=== PATIENT | male | born 1950 | race Two or more races ===

== ENCOUNTER 2019-06-10 11:18 | Inpatient (IN) | payer MEDICAID, OTHER ==
[~2019-06-10] VITALS: Ht 170.2 cm; Wt 90.7 kg
[2019-06-10] MEDS ORDERED: ALBUTEROL (0.083%) 2.5MG/3ML NEB HHN STA (11:59)
[2019-06-10] MEDS ORDERED: IPRATROPIUM BROMIDE (0.02%) 0.5MG/2.5ML NEB HHN STA (11:59)
[2019-06-10] MEDS ORDERED: METHYLPREDNISOLONE SOD SUCC 125 MG/2 ML VIAL IV STA (11:59)
[2019-06-10] MEDS ORDERED: ASPIRIN 81MG TABLET PO ONE (12:00)
[2019-06-10] MEDS ORDERED: NITROGLYCERIN OINT 1GM/INCH UDPKT TD ONE (12:00)
[2019-06-10] MEDS ORDERED: FUROSEMIDE 40MG/4ML VIAL IV ONE (12:00)
[2019-06-10 13:06] LABS: BASOPHILS % 0.5 % (0.0-2.0); EOSINOPHILS % 0.8 % (0.0-5.0); HEMOGLOBIN. 11.9 g/dL (14.0-18.0); LYMPHOCYTES % 14.3 % (20.0-50.0); MEAN CORPUSCULAR HEMOGLOBIN 31.5 pg (28.0-32.0); MEAN CORPUSCULAR VOLUME 95.4 fL (80.0-94.0); MONOCYTES % 11.8 % (2.0-8.0); NEUTROPHILS % 72.6 % (40.0-76.0); PLATELET 186 x1000/uL (130-400); RED BLOOD CELL COUNT 3.77 mill/uL (4.7-6.1); RED CELL DISTRIBUTION WIDTH 16.7 % (11.6-14.6)
[2019-06-10 13:09] LABS: CHLORIDE 104 mEq/L (98-107)
[2019-06-10 13:19] LABS: INR 2.7; PARTIAL THROMBOPLASTIN TIME 37.8 sec (23.4-31.0); PROTHROMBIN TIME 26.8 sec (9.6-11.0)
[2019-06-10] MEDS ORDERED: MAGNESIUM/ALUMINUM HYDROXIDE/SIMETHICONE 30ML UDC PO PRN (19:00)
[2019-06-10] MEDS ORDERED: ONDANSETRON HCL 4MG/2ML INJ IV PRN (19:00)
[2019-06-10] MEDS ORDERED: ACETAMINOPHEN 325MG TABLET PO PRN (19:00)
[2019-06-10] MEDS ORDERED: HYDROCODONE/ACETAMINOPHEN 5/325MG TABLET PO PRN (19:00)
[2019-06-10] MEDS ORDERED: GUAIFENESIN 200MG/10ML SUGAR FREE UDC PO PRN (19:00)
[2019-06-10] MEDS ORDERED: DOCUSATE SODIUM 100MG CAPSULE PO PRN (19:00)
[2019-06-10] MEDS ORDERED: MORPHINE SULFATE 2 MG/ML CPJ (NOT FOR IM USE) IV PRN (19:18)
[2019-06-10 22:10] VITALS: BP 159/97
[2019-06-11] MEDS ORDERED: METO25TA6 PO (02:02)
[2019-06-11] MEDS ORDERED: TIOT4MIS3 IH (02:02)
[2019-06-11] MEDS ORDERED: LEVO25TA7 PO (02:02)
[2019-06-11] MEDS ORDERED: CARB-32 PO (02:02)
[2019-06-11] MEDS ORDERED: BENA10TA74 PO (02:02)
[2019-06-11] MEDS ORDERED: CLON0.1T PO (02:02)
[2019-06-11] MEDS ORDERED: FURO20TA4 PO (02:02)
[2019-06-11] MEDS ORDERED: POTA20TA82 PO (02:02)
[2019-06-11] MEDS ORDERED: COLC0.6C3 PO (02:02)
[2019-06-11] MEDS ORDERED: FLUT100B IH (02:02)
[2019-06-11] MEDS ORDERED: XAR15 PO (02:02)
[2019-06-11 04:00] VITALS: BP 153/108
[2019-06-11] MEDS: CLONIDINE 0.1MG TABLET PO PRN ×2 (06:28→08:28)
[2019-06-11 06:39] LABS: BASOPHILS % 0.1 % (0.0-2.0); HEMATOCRIT. 34.1 % (42.0-52.0); HEMOGLOBIN. 11.2 g/dL (14.0-18.0); LYMPHOCYTES % 8.8 % (20.0-50.0); MEAN CORPUSCULAR HEMOGLOBIN 31.4 pg (28.0-32.0); MEAN PLATELET VOLUME 9.4 fl (7.4-10.4); MONOCYTES % 3.1 % (2.0-8.0); PLATELET 165 x1000/uL (130-400); RED BLOOD CELL COUNT 3.56 mill/uL (4.7-6.1); RED CELL DISTRIBUTION WIDTH 16.7 % (11.6-14.6)
[2019-06-11 08:00] VITALS: BP 176/113
[2019-06-11] MEDS ORDERED: PNEUMOCOCCAL 23-VAL P-SAC VAC 0.5 ML IM ONE (08:00)
[2019-06-11] MEDS: LISINOPRIL 10MG TABLET PO SCH (08:28)
[2019-06-11] MEDS: FUROSEMIDE 40MG/4ML VIAL IV SCH (08:29)
[2019-06-11 08:36] LABS: CHLORIDE 104 mEq/L (98-107)
[2019-06-11 08:46] LABS: LDL CHOLESTEROL 74 mg/dL (5-100)
[2019-06-11 08:48] LABS: HDL CHOLESTEROL 39 mg/dL (40-59)
[2019-06-11] MEDS ORDERED: INFLUENZA VIRUS VACCINE(AFLURIA) 0.5ML SYR IM ONE (10:00)
[2019-06-11] MEDS ORDERED: FLUTICASONE FUROATE 100 1 INH/CAP ORI SCH (10:00)
[2019-06-11] MEDS: LEVOTHYROXINE SODIUM 25MCG TABLET PO SCH (10:38)
[2019-06-11] MEDS: POTASSIUM CHLORIDE 20MEQ TABLET SR PO SCH (10:38)
[2019-06-11 12:18] VITALS: BP 152/102
[2019-06-11] MEDS: CARBIDOPA/LEVODOPA 25/100MG TABLET PO SCH ×2 (13:42→22:08)
[2019-06-11 16:00] VITALS: BP 153/103
[2019-06-11 16:36] LABS: T4 FREE 1.55 ng/dL (0.76-1.46)
[2019-06-11 20:10] VITALS: BP 148/112
[2019-06-11] MEDS: BUDESONIDE 0.5MG/2ML NEB HHN SCH (20:35)
[2019-06-11] MEDS: METOPROLOL TARTRATE 25MG TABLET PO SCH (22:07)
[2019-06-11] MEDS: CLONIDINE 0.1MG TABLET PO SCH (22:08)
[2019-06-12] VITALS (7 sets, daily range): BP systolic 110–175; BP diastolic 74–118
[2019-06-12 00:31] LABS: CREATINE KINASE MB FRACTION 1.9 ng/mL (0.5-3.6)
[2019-06-12] MEDS: IPRATROPIUM/ALBUTEROL 0.5-3(2.5)MG/3ML NEB NEB PRN ×2 (02:30→18:09)
[2019-06-12] MEDS: CLONIDINE 0.1MG TABLET PO PRN (04:01)
[2019-06-12] MEDS: CARBIDOPA/LEVODOPA 25/100MG TABLET PO SCH ×3 (05:50→21:10)
[2019-06-12] MEDS: LEVOTHYROXINE SODIUM 25MCG TABLET PO SCH (05:50)
[2019-06-12 07:43] LABS: INR 1.5; PROTHROMBIN TIME 14.8 sec (9.6-11.0)
[2019-06-12 08:16] LABS: CREATINE KINASE MB FRACTION 1.8 ng/mL (0.5-3.6)
[2019-06-12] MEDS: POTASSIUM CHLORIDE 20MEQ TABLET SR PO SCH (09:02)
[2019-06-12] MEDS: METOPROLOL TARTRATE 25MG TABLET PO SCH ×2 (09:03→21:10)
[2019-06-12] MEDS: LISINOPRIL 10MG TABLET PO SCH (09:07)
[2019-06-12] MEDS: FUROSEMIDE 40MG/4ML VIAL IV SCH (09:07)
[2019-06-12] MEDS: CLONIDINE 0.1MG TABLET PO SCH ×2 (09:07→21:11)
[2019-06-12] MEDS: BUDESONIDE 0.5MG/2ML NEB HHN SCH (10:25)
[2019-06-12] MEDS: METHYLPREDNISOLONE SOD SUCC 40 MG/ML VIAL IV SCH (12:43)
[2019-06-12] MEDS: RIVAROXABAN 15 MG TABLET PO SCH (18:28)
[2019-06-13] VITALS (7 sets, daily range): BP systolic 116–169; BP diastolic 87–119
[2019-06-13] MEDS: IPRATROPIUM/ALBUTEROL 0.5-3(2.5)MG/3ML NEB HHN SCH ×5 (00:26→20:33)
[2019-06-13] MEDS: CLONIDINE 0.1MG TABLET PO PRN (00:49)
[2019-06-13] MEDS: CARBIDOPA/LEVODOPA 25/100MG TABLET PO SCH ×3 (05:09→21:12)
[2019-06-13 06:53] LABS: BASOPHILS % 0.1 % (0.0-2.0); HEMATOCRIT. 36.8 % (42.0-52.0); HEMOGLOBIN. 12.1 g/dL (14.0-18.0); LYMPHOCYTES % 7.9 % (20.0-50.0); MEAN CORPUSCULAR HEMOGLOBIN 31.5 pg (28.0-32.0); MEAN CORPUSCULAR VOLUME 95.8 fL (80.0-94.0); MEAN PLATELET VOLUME 9.2 fl (7.4-10.4); MONOCYTES % 2.7 % (2.0-8.0); NEUTROPHILS % 89.3 % (40.0-76.0); PLATELET 178 x1000/uL (130-400); RED BLOOD CELL COUNT 3.84 mill/uL (4.7-6.1); RED CELL DISTRIBUTION WIDTH 17.1 % (11.6-14.6)
[2019-06-13 06:57] LABS: CHLORIDE 102 mEq/L (98-107)
[2019-06-13] MEDS: METHYLPREDNISOLONE SOD SUCC 40 MG/ML VIAL IV SCH (08:44)
[2019-06-13] MEDS: FUROSEMIDE 40MG/4ML VIAL IV SCH (08:44)
[2019-06-13] MEDS: METOPROLOL TARTRATE 25MG TABLET PO SCH ×2 (08:45→21:12)
[2019-06-13] MEDS: LEVOTHYROXINE SODIUM 25MCG TABLET PO SCH (08:45)
[2019-06-13] MEDS: LISINOPRIL 10MG TABLET PO SCH (08:45)
[2019-06-13] MEDS: POTASSIUM CHLORIDE 20MEQ TABLET SR PO SCH (08:45)
[2019-06-13] MEDS: CLONIDINE 0.1MG TABLET PO SCH ×2 (08:46→21:12)
[2019-06-13] MEDS: BUDESONIDE 0.5MG/2ML NEB HHN SCH ×3 (08:52→20:33)
[2019-06-13] MEDS: RIVAROXABAN 15 MG TABLET PO SCH (18:10)
[2019-06-13 18:11] LABS: BG BASE EXCESS -1.3 mmol/L (-2.0-2.0); BG CARBOXYHEMOGLOBIN 0.8 % (0.5-1.5); BG DEOXYHEMOGLOBIN 5.8 % (0.0-5.0); BG HCO3 ACT 22.4 mmol/L (22.0-26.0); BG METHEMOGLOBIN 0.1 % (0.0-1.5); BG OXYGEN SATURATION 94.1 % (92.0-98.5); BG OXYHEMOGLOBIN 93.3 % (94.0-97.0); BG PCO2 34.9 mmHg (35.0-45.0); BG PH 7.426 (7.350-7.450); BG PO2 72.6 mmHg (75.0-100.0); BG SAMPLE SITE RIGHT RADIAL; BG VENT MODE ROOM AIR
[2019-06-14] VITALS: BP 152/99
[2019-06-14] MEDS: CLONIDINE 0.1MG TABLET PO PRN (03:23)
[2019-06-14 03:30] VITALS: BP 164/101
[2019-06-14] MEDS: CARBIDOPA/LEVODOPA 25/100MG TABLET PO SCH ×3 (05:13→21:21)
[2019-06-14 08:00] VITALS: BP 166/115
[2019-06-14] MEDS: POTASSIUM CHLORIDE 20MEQ TABLET SR PO SCH (08:23)
[2019-06-14] MEDS: LEVOTHYROXINE SODIUM 25MCG TABLET PO SCH (08:23)
[2019-06-14] MEDS: LISINOPRIL 10MG TABLET PO SCH (08:24)
[2019-06-14] MEDS: CLONIDINE 0.1MG TABLET PO SCH ×2 (08:24→21:22)
[2019-06-14] MEDS: METOPROLOL TARTRATE 25MG TABLET PO SCH ×2 (08:24→21:22)
[2019-06-14] MEDS: BUDESONIDE 0.5MG/2ML NEB HHN SCH ×2 (08:37→21:57)
[2019-06-14] MEDS: IPRATROPIUM/ALBUTEROL 0.5-3(2.5)MG/3ML NEB HHN SCH ×3 (08:37→22:08)
[2019-06-14] MEDS: FUROSEMIDE 40MG/4ML VIAL IV SCH (09:48)
[2019-06-14] MEDS: METHYLPREDNISOLONE SOD SUCC 40 MG/ML VIAL IV SCH (09:48)
[2019-06-14 12:00] VITALS: BP 162/117
[2019-06-14 16:00] VITALS: BP 149/99
[2019-06-14] MEDS: RIVAROXABAN 15 MG TABLET PO SCH (16:33)
[2019-06-14] MEDS ORDERED: MEDICATION NOT ON FORMULARY EA (Colchicine 0.6 MG) PO SCH (18:00)
[2019-06-14] MEDS: COLCHICINE 0.6MG TABLET PO SCH (19:16)
[2019-06-14 20:00] VITALS: BP 161/107
[2019-06-15] VITALS: BP 168/125
[2019-06-15] MEDS: CLONIDINE 0.1MG TABLET PO PRN ×2 (01:33→11:47)
[2019-06-15 04:00] VITALS: BP 161/112
[2019-06-15] MEDS: IPRATROPIUM/ALBUTEROL 0.5-3(2.5)MG/3ML NEB HHN SCH ×3 (04:45→15:42)
[2019-06-15] MEDS: CARBIDOPA/LEVODOPA 25/100MG TABLET PO SCH ×2 (06:17→13:35)
[2019-06-15] MEDS: FUROSEMIDE 40MG/4ML VIAL IV SCH (08:25)
[2019-06-15] MEDS: METHYLPREDNISOLONE SOD SUCC 40 MG/ML VIAL IV SCH (08:25)
[2019-06-15] MEDS: COLCHICINE 0.6MG TABLET PO SCH (08:26)
[2019-06-15] MEDS: LEVOTHYROXINE SODIUM 25MCG TABLET PO SCH (08:26)
[2019-06-15] MEDS: CLONIDINE 0.1MG TABLET PO SCH (08:26)
[2019-06-15] MEDS: LISINOPRIL 10MG TABLET PO SCH (08:27)
[2019-06-15] MEDS: METOPROLOL TARTRATE 25MG TABLET PO SCH (08:27)
[2019-06-15] MEDS: POTASSIUM CHLORIDE 20MEQ TABLET SR PO SCH (08:27)
[2019-06-15 08:52] VITALS: BP 165/115
[2019-06-15 16:36] VITALS: BP 175/113
[2019-06-15] MEDS: RIVAROXABAN 15 MG TABLET PO SCH (17:32)
[2019-06-15 17:33] VITALS: BP 135/86
[2019-09-07] MEDS ORDERED: ALBU18HF2 IH (12:47)
[2019-09-07] MEDS ORDERED: COR12 PO (12:47)
[2019-09-07] MEDS ORDERED: LOSA50TA3 PO (12:47)
[2019-09-07] MEDS ORDERED: FURO40TA5 PO (12:47)
[2019-09-07] MEDS ORDERED: POTA20TA82 PO (12:47)
== END 2019-06-15 18:49 | disposition home or self-care (01) | DRG 194 ==
LOC: ER 11:18 → 6WST 15:12 → ENRESERV 20:45
PROVIDERS: ADMIT Hospitalist; ATTEND Hospitalist
DX: I13.0 Hypertensive heart and chronic kidney disease with heart failure and stage 1 through stage 4 chronic kidney disease, or unspecified chronic kidney disease (principal); J96.00 Acute respiratory failure, unspecified whether with hypoxia or hypercapnia; N17.9 Acute kidney failure, unspecified; G20 Parkinson's disease; E44.1 Mild protein-calorie malnutrition; I42.9 Cardiomyopathy, unspecified; I48.91 Unspecified atrial fibrillation; N18.9 Chronic kidney disease, unspecified; I50.43 Acute on chronic combined systolic (congestive) and diastolic (congestive) heart failure; I73.9 Peripheral vascular disease, unspecified; J44.1 Chronic obstructive pulmonary disease with (acute) exacerbation; Z87.820 Personal history of traumatic brain injury; Z79.01 Long term (current) use of anticoagulants; Z68.31 Body mass index [BMI] 31.0-31.9, adult; Z79.899 Other long term (current) drug therapy
CPT/HCPCS: 36415; 36600; 71045; 80053; 80061; 82375; 82550; 82553; 82805; 83036; 83735; 83880; 84439; 84443; 84484; 85025; 85379; 90686; 90732; 93005; 93306; 93970; 94640; 94644; 99285; J1940; J2920; J2930; J7626

== ENCOUNTER 2019-07-12 16:54 | Inpatient (IN) | payer MEDICAID ==
[~2019-07-12] VITALS: Ht 170.2 cm; Wt 90.7 kg
[2019-07-12] MEDS: IPRATROPIUM BROMIDE (0.02%) 0.5MG/2.5ML NEB HHN STA ×2 (15:15→17:15)
[2019-07-12] MEDS: ALBUTEROL (0.083%) 2.5MG/3ML NEB HHN STA ×2 (15:15→17:15)
[~2019-07-12 16:54] MED LIST: BENA10TA74 PO; CARB-32 PO; CLON0.1T PO; COLC0.6C3 PO; FLUT100B IH; FURO20TA4 PO; LEVO25TA7 PO; METO25TA6 PO; POTA20TA82 PO; TIOT4MIS3 IH; XAR15 PO
[2019-07-12] MEDS ORDERED: METHYLPREDNISOLONE SOD SUCC 125 MG/2 ML VIAL IV STA (17:01)
[2019-07-12] MEDS ORDERED: MAGNESIUM 2 G PREMIX 50 ML IV STA (17:01)
[2019-07-12] MEDS ORDERED: FUROSEMIDE 20MG/2ML VIAL IVP ONE (17:15)
[2019-07-12 17:44] LABS: CHLORIDE 104 mEq/L (98-107)
[2019-07-12 17:46] LABS: INR 1.7; PROTHROMBIN TIME 17.8 sec (9.6-11.0)
[2019-07-12 17:56] LABS: EOSINOPHILS % 8.6 % (0.0-5.0); HEMATOCRIT. 37.4 % (42.0-52.0); HEMOGLOBIN. 12.6 g/dL (14.0-18.0); LYMPHOCYTES % 20.7 % (20.0-50.0); MEAN CORPUSCULAR HEMOGLOBIN 31.7 pg (28.0-32.0); MEAN CORPUSCULAR VOLUME 93.9 fL (80.0-94.0); MEAN PLATELET VOLUME 8.8 fl (7.4-10.4); MONOCYTES % 8.6 % (2.0-8.0); NEUTROPHILS % 61.1 % (40.0-76.0); PLATELET 218 x1000/uL (130-400); RED BLOOD CELL COUNT 3.98 mill/uL (4.7-6.1); RED CELL DISTRIBUTION WIDTH 19.3 % (11.6-14.6)
[2019-07-12 18:31] LABS: PLATELET ESTIMATE NORMAL
[2019-07-12] MEDS ORDERED: LEVOFLOXACIN 500MG PREMIX 100 ML IV ONE (18:45)
[2019-07-12] MEDS ORDERED: NITROGLYCERIN 0.4MG TABLET SL SL PRN (19:45)
[2019-07-12] MEDS ORDERED: ACETAMINOPHEN 325MG TABLET PO PRN ×2 (19:45)
[2019-07-12] MEDS ORDERED: LORAZEPAM 0.5MG TABLET PO PRN (19:45)
[2019-07-12] MEDS ORDERED: CLONIDINE 0.1MG TABLET PO PRN (19:45)
[2019-07-12] MEDS ORDERED: GUAIFENESIN 200MG/10ML SUGAR FREE UDC PO PRN (19:45)
[2019-07-12] MEDS ORDERED: DOCUSATE SODIUM 100MG CAPSULE PO PRN (19:45)
[2019-07-12] MEDS ORDERED: KETOROLAC 15MG/ML VIAL IV PRN (19:45)
[2019-07-12] MEDS ORDERED: MAGNESIUM/ALUMINUM HYDROXIDE/SIMETHICONE 30ML UDC PO PRN (19:45)
[2019-07-12] MEDS ORDERED: ONDANSETRON HCL 4MG/2ML INJ IV PRN (19:45)
[2019-07-12] MEDS ORDERED: POTASSIUM CHLORIDE 20MEQ TABLET SR PO ONE ×2 (20:00→20:15)
[2019-07-12] MEDS ORDERED: FAMOTIDINE 20MG TABLET PO STA (20:17)
[2019-07-12] MEDS ORDERED: CARBIDOPA/LEVODOPA 25/100MG TABLET PO STA (20:17)
[2019-07-12] MEDS ORDERED: SPIRONOLACTONE 25MG TABLET PO STA (20:18)
[2019-07-12] MEDS ORDERED: FUROSEMIDE 40MG/4ML VIAL IVP STA (20:18)
[2019-07-12 20:23] LABS: CLARITY URINE CLEAR (CLEAR); COLOR URINE YELLOW (YELLOW); KETONES URINE NEGATIVE (NEGATIVE); LEUKOCYTE ESTERASE URINE TRACE (NEGATIVE); NITRITE URINE NEGATIVE (NEGATIVE); OCCULT BLOOD URINE 1+ (NEGATIVE); PH URINE 6.5 (4.5-8.0); PROTEIN URINE 2+ (NEGATIVE); SPECIFIC GRAVITY URINE 1.011 (1.005-1.030); UROBILINOGEN URINE 0.2 E.U./dL (0.2-1.0)
[2019-07-12 20:34] LABS: TOTAL IRON BINDING CAPACITY 396 ug/dL (250-450)
[2019-07-12 20:34] LABS: *AMPHETAMINES SCREEN URINE NEGATIVE (NEGATIVE); *BARBITURATES SCREEN URINE NEGATIVE (NEGATIVE); *BENZODIAZEPINES SCREEN URINE NEGATIVE (NEGATIVE)
[2019-07-12 20:35] LABS: *COCAINE SCREEN URINE NEGATIVE (NEGATIVE); CANNABINOID URINE SCREEN NEGATIVE (NEGATIVE); METHADONE URINE SCREEN NEGATIVE (NEGATIVE); PHENCYCLIDINE URINE SCREEN NEGATIVE (NEGATIVE)
[2019-07-12 20:59] LABS: FOLIC ACID (FOLATE) SERUM 7.5 ng/mL (>5.38)
[2019-07-13] MEDS ORDERED: FAMOTIDINE 20MG TABLET PO NR (00:30)
[2019-07-13] MEDS: ZOLPIDEM TARTRATE 5MG TABLET PO PRN ×2 (03:32→21:59)
[2019-07-13 04:58] LABS: BASOPHILS % 0.2 % (0.0-2.0); EOSINOPHILS % 0.1 % (0.0-5.0); HEMATOCRIT. 34.1 % (42.0-52.0); HEMOGLOBIN. 11.3 g/dL (14.0-18.0); LYMPHOCYTES % 11.9 % (20.0-50.0); MEAN CORPUSCULAR HEMOGLOBIN 31.2 pg (28.0-32.0); MEAN CORPUSCULAR VOLUME 93.9 fL (80.0-94.0); MEAN PLATELET VOLUME 8.5 fl (7.4-10.4); MONOCYTES % 1.4 % (2.0-8.0); NEUTROPHILS % 86.4 % (40.0-76.0); PLATELET 149 x1000/uL (130-400); RED BLOOD CELL COUNT 3.63 mill/uL (4.7-6.1); RED CELL DISTRIBUTION WIDTH 18.7 % (11.6-14.6)
[2019-07-13 05:02] LABS: CHLORIDE 106 mEq/L (98-107)
[2019-07-13 05:10] LABS: PHOSPHORUS 4.6 mg/dL (2.5-4.9)
[2019-07-13 05:13] LABS: CREATINE KINASE 75 IU/L (39-308)
[2019-07-13 05:16] LABS: CREATINE KINASE MB FRACTION 2.3 ng/mL (0.5-3.6)
[2019-07-13] MEDS: FAMOTIDINE 20MG TABLET PO SCH (09:00)
[2019-07-13] MEDS: DILTIAZEM HCL 30MG TABLET PO SCH ×4 (09:27→23:09)
[2019-07-13] MEDS: CARBIDOPA/LEVODOPA 25/100MG TABLET PO SCH ×3 (09:27→21:59)
[2019-07-13] MEDS: ASPIRIN 325MG EC TABLET PO SCH (09:28)
[2019-07-13] MEDS: SPIRONOLACTONE 25MG TABLET PO SCH ×2 (09:28→22:00)
[2019-07-13] MEDS: FUROSEMIDE 40MG/4ML VIAL IVP SCH ×2 (09:28→21:59)
[2019-07-13] MEDS: IPRATROPIUM/ALBUTEROL 0.5-3(2.5)MG/3ML NEB NEB PRN ×2 (14:41→22:25)
[2019-07-13] MEDS ORDERED: RIVAROXABAN 10 MG TABLET PO SCH (17:00)
[2019-07-13] MEDS ORDERED: CARVEDILOL 6.25 MG TABLET PO SCH (17:00)
[2019-07-13 18:55] VITALS: BP 155/116
[2019-07-13 20:00] VITALS: BP_SYST 152; BP_SYST 155; BP_DIAS 105; BP_DIAS 116
[2019-07-13 20:14] LABS: OPIATES URINE SCREEN NEGATIVE (NEGATIVE)
[2019-07-13] MEDS ORDERED: RIVAROXABAN 15 MG TABLET PO SCH (20:15)
[2019-07-13] MEDS: CARVEDILOL 3.125 MG TABLET PO SCH (21:59)
[2019-07-14] VITALS: BP 158/101
[2019-07-14] MEDS: IPRATROPIUM/ALBUTEROL 0.5-3(2.5)MG/3ML NEB NEB PRN ×3 (03:27→16:34)
[2019-07-14 04:00] VITALS: BP 143/107
[2019-07-14] MEDS: CARBIDOPA/LEVODOPA 25/100MG TABLET PO SCH ×3 (05:49→21:18)
[2019-07-14] MEDS: DILTIAZEM HCL 30MG TABLET PO SCH ×3 (05:49→17:00)
[2019-07-14 06:57] LABS: CHLORIDE 103 mEq/L (98-107)
[2019-07-14 07:04] LABS: BASOPHILS % 0.3 % (0.0-2.0); HEMATOCRIT. 32.3 % (42.0-52.0); HEMOGLOBIN. 10.9 g/dL (14.0-18.0); LYMPHOCYTES % 11.2 % (20.0-50.0); MEAN CORPUSCULAR HEMOGLOBIN 31.5 pg (28.0-32.0); MEAN CORPUSCULAR VOLUME 93.5 fL (80.0-94.0); MEAN PLATELET VOLUME 8.6 fl (7.4-10.4); MONOCYTES % 8.4 % (2.0-8.0); NEUTROPHILS % 80.1 % (40.0-76.0); PLATELET 188 x1000/uL (130-400); RED BLOOD CELL COUNT 3.45 mill/uL (4.7-6.1)
[2019-07-14 07:09] LABS: PHOSPHORUS 4.6 mg/dL (2.5-4.9)
[2019-07-14 08:38] VITALS: BP 160/118
[2019-07-14] MEDS: ASPIRIN 325MG EC TABLET PO SCH (08:54)
[2019-07-14] MEDS: CARVEDILOL 3.125 MG TABLET PO SCH ×2 (08:55→21:18)
[2019-07-14] MEDS: FAMOTIDINE 20MG TABLET PO SCH (08:55)
[2019-07-14] MEDS: FUROSEMIDE 40MG/4ML VIAL IVP SCH ×2 (08:55→21:17)
[2019-07-14] MEDS: SPIRONOLACTONE 25MG TABLET PO SCH ×2 (08:55→21:18)
[2019-07-14 12:24] VITALS: BP 128/94
[2019-07-14 15:44] VITALS: BP 145/107
[2019-07-14 20:00] VITALS: BP 141/109
[2019-07-15] VITALS (7 sets, daily range): BP systolic 140–156; BP diastolic 98–114
[2019-07-15] MEDS: DILTIAZEM HCL 30MG TABLET PO SCH ×3 (00:12→13:09)
[2019-07-15] MEDS: IPRATROPIUM/ALBUTEROL 0.5-3(2.5)MG/3ML NEB NEB PRN ×2 (01:00→09:27)
[2019-07-15] MEDS: CARBIDOPA/LEVODOPA 25/100MG TABLET PO SCH ×2 (06:12→13:12)
[2019-07-15] MEDS: FUROSEMIDE 40MG/4ML VIAL IVP SCH (08:19)
[2019-07-15] MEDS: FAMOTIDINE 20MG TABLET PO SCH (08:24)
[2019-07-15] MEDS: ASPIRIN 325MG EC TABLET PO SCH (08:24)
[2019-07-15] MEDS: CARVEDILOL 3.125 MG TABLET PO SCH (08:25)
[2019-07-15] MEDS: SPIRONOLACTONE 25MG TABLET PO SCH (08:25)
[2019-07-15 15:37] LABS: BASOPHILS % 0.4 % (0.0-2.0); EOSINOPHILS % 2.1 % (0.0-5.0); HEMATOCRIT. 33.3 % (42.0-52.0); HEMOGLOBIN. 11.1 g/dL (14.0-18.0); MEAN CORPUSCULAR HEMOGLOBIN 31.2 pg (28.0-32.0); MEAN CORPUSCULAR VOLUME 93.8 fL (80.0-94.0); MEAN PLATELET VOLUME 8.8 fl (7.4-10.4); MONOCYTES % 8.7 % (2.0-8.0); NEUTROPHILS % 70.8 % (40.0-76.0); PLATELET 182 x1000/uL (130-400); RED BLOOD CELL COUNT 3.55 mill/uL (4.7-6.1); RED CELL DISTRIBUTION WIDTH 18.5 % (11.6-14.6)
[2019-07-15 15:38] LABS: CHLORIDE 102 mEq/L (98-107)
== END 2019-07-15 17:30 | disposition home or self-care (01) | DRG 194 ==
LOC: ER 16:54 → 6WST 18:05 → EDBEDREQTM 18:10 → EDBEDREQ 18:10 → ENRESERV 07-13 17:19 → CMPBEDREQ 07-14 05:48
PROVIDERS: ADMIT Internal Medicine; ATTEND Internal Medicine
DX: I13.0 Hypertensive heart and chronic kidney disease with heart failure and stage 1 through stage 4 chronic kidney disease, or unspecified chronic kidney disease (principal); J96.00 Acute respiratory failure, unspecified whether with hypoxia or hypercapnia; N17.0 Acute kidney failure with tubular necrosis; I27.20 Pulmonary hypertension, unspecified; E44.1 Mild protein-calorie malnutrition; J91.8 Pleural effusion in other conditions classified elsewhere; G20 Parkinson's disease; I50.43 Acute on chronic combined systolic (congestive) and diastolic (congestive) heart failure; N18.4 Chronic kidney disease, stage 4 (severe); E87.6 Hypokalemia; D63.8 Anemia in other chronic diseases classified elsewhere; I42.9 Cardiomyopathy, unspecified; I42.0 Dilated cardiomyopathy; J44.9 Chronic obstructive pulmonary disease, unspecified; I48.20 Chronic atrial fibrillation, unspecified; I34.0 Nonrheumatic mitral (valve) insufficiency; Z79.01 Long term (current) use of anticoagulants; Z79.899 Other long term (current) drug therapy; Z68.31 Body mass index [BMI] 31.0-31.9, adult
CPT/HCPCS: 36415; 71045; 80053; 80061; 80305; 81003; 82550; 82553; 82607; 82746; 83036; 83540; 83550; 83605; 83735; 83880; 84100; 84145; 84484; 85025; 93005; 93306; 93970; 94640; 97162; 99291; J1940; J1956; J2930; J3475

== ENCOUNTER 2019-08-20 18:43 | Inpatient (IN) | payer MEDICAID, OTHER ==
[~2019-08-20] VITALS: Ht 167.6 cm; Wt 88.5 kg
[2019-08-20 05:41] VITALS: BP 125/85
[2019-08-20] MEDS ORDERED: CEFTRIAXONE 1 G PREMIX 50 ML IV ONE (19:15)
[2019-08-20] MEDS ORDERED: AZITHROMYCIN 500 MG in DEXT 5% WATER 250 ML IV SCH (19:15)
[2019-08-20] MEDS ORDERED: FUROSEMIDE 40MG/4ML VIAL IV ONE (19:15)
[2019-08-20 22:17] LABS: BASOPHILS % 0.6 % (0.0-2.0); EOSINOPHILS % 0.1 % (0.0-5.0); HEMATOCRIT. 35.9 % (42.0-52.0); LYMPHOCYTES % 15.7 % (20.0-50.0); MEAN CORPUSCULAR HEMOGLOBIN 31.3 pg (28.0-32.0); MEAN CORPUSCULAR VOLUME 93.5 fL (80.0-94.0); MONOCYTES % 13.3 % (2.0-8.0); NEUTROPHILS % 70.3 % (40.0-76.0); PLATELET 199 x1000/uL (130-400); RED BLOOD CELL COUNT 3.84 mill/uL (4.7-6.1); RED CELL DISTRIBUTION WIDTH 17.3 % (11.6-14.6)
[2019-08-20 22:23] LABS: CHLORIDE 95 mEq/L (98-107)
[2019-08-20] MEDS ORDERED: ONDANSETRON HCL 4MG/2ML INJ IV ONE (22:30)
[2019-08-20 22:44] LABS: CLARITY URINE CLEAR (CLEAR); COLOR URINE DARK YELLOW (YELLOW); KETONES URINE TRACE (NEGATIVE); LEUKOCYTE ESTERASE URINE 1+ (NEGATIVE); NITRITE URINE NEGATIVE (NEGATIVE); OCCULT BLOOD URINE NEGATIVE (NEGATIVE); PROTEIN URINE 2+ (NEGATIVE); SPECIFIC GRAVITY URINE 1.015 (1.005-1.030)
[2019-08-20] MEDS ORDERED: DEXTROSE 50% WATER 50ML SYRINGE IV ONE (23:00)
[2019-08-21] MEDS ORDERED: ASPIRIN 81MG TABLET PO ONE
[2019-08-21 00:04] LABS: PARTIAL THROMBOPLASTIN TIME 51.4 sec (23.4-31.0)
[2019-08-21 00:46] LABS: INR > 10.0; PROTHROMBIN TIME > 100.0 sec (9.6-11.0)
[2019-08-21] MEDS ORDERED: MORPHINE SULFATE 2 MG/ML CPJ (NOT FOR IM USE) IV PRN (04:00)
[2019-08-21] MEDS ORDERED: ONDANSETRON HCL 4MG/2ML INJ IV PRN (04:00)
[2019-08-21] MEDS ORDERED: NA PHOS,M-B/NA PHOS,DI-BA ENEMA 118ML PR PRN (04:00)
[2019-08-21] MEDS ORDERED: DOCUSATE SODIUM 100MG CAPSULE PO PRN (04:00)
[2019-08-21] MEDS ORDERED: HYDROCODONE/ACETAMINOPHEN 5/325MG TABLET PO PRN (04:00)
[2019-08-21] MEDS ORDERED: ACETAMINOPHEN 325MG TABLET PO PRN (04:00)
[2019-08-21] MEDS ORDERED: GUAIFENESIN 200MG/10ML SUGAR FREE UDC PO PRN (04:00)
[2019-08-21] MEDS ORDERED: AZITHROMYCIN 500 MG in DEXT 5% WATER 250 ML IV SCH (04:00)
[2019-08-21] MEDS ORDERED: CLONIDINE 0.1MG TABLET PO PRN (04:00)
[2019-08-21 05:41] VITALS: BP 125/85
[2019-08-21 09:00] VITALS: BP 134/77
[2019-08-21] MEDS ORDERED: MAGNESIUM/ALUMINUM HYDROXIDE/SIMETHICONE 30ML UDC PO PRN (09:00)
[2019-08-21] MEDS ORDERED: FUROSEMIDE 40MG/4ML VIAL IV SCH (09:00)
[2019-08-21] MEDS: AMLODIPINE 10MG TABLET PO SCH (11:01)
[2019-08-21] MEDS: METOPROLOL TARTRATE 25MG TABLET PO SCH ×2 (11:01→22:39)
[2019-08-21 12:00] VITALS: BP 134/78
[2019-08-21] MEDS: COLCHICINE 0.6MG TABLET PO SCH (12:17)
[2019-08-21] MEDS: CARBIDOPA/LEVODOPA 10/100MG TABLET PO SCH ×2 (12:17→22:40)
[2019-08-21] MEDS: LEVOTHYROXINE SODIUM 25MCG TABLET PO SCH (12:18)
[2019-08-21 20:00] VITALS: BP 120/75
[2019-08-21] MEDS ORDERED: CEFTRIAXONE 1 G PREMIX 50 ML IV SCH (20:00)
[2019-08-21] MEDS ORDERED: IPRATROPIUM/ALBUTEROL 0.5-3(2.5)MG/3ML NEB HHN PRN (21:00)
[2019-08-21] MEDS ORDERED: AZITHROMYCIN 250 MG TABLET PO SCH (21:00)
[2019-08-21 22:20] VITALS: BP 111/84
[2019-08-21] MEDS: CEFTRIAXONE 1 G PREMIX 50 ML IV SCH (22:40)
[2019-08-22] VITALS: BP 160/62
[2019-08-22 07:15] LABS: BASOPHILS % 0.8 % (0.0-2.0); EOSINOPHILS % 5.9 % (0.0-5.0); HEMATOCRIT. 33.7 % (42.0-52.0); HEMOGLOBIN. 11.4 g/dL (14.0-18.0); LYMPHOCYTES % 12.8 % (20.0-50.0); MEAN CORPUSCULAR HEMOGLOBIN 31.4 pg (28.0-32.0); MEAN CORPUSCULAR VOLUME 92.5 fL (80.0-94.0); MEAN PLATELET VOLUME 9.2 fl (7.4-10.4); MONOCYTES % 4.4 % (2.0-8.0); NEUTROPHILS % 76.1 % (40.0-76.0); PLATELET 188 x1000/uL (130-400); RED BLOOD CELL COUNT 3.64 mill/uL (4.7-6.1); RED CELL DISTRIBUTION WIDTH 18.1 % (11.6-14.6)
[2019-08-22 07:27] LABS: CHLORIDE 98 mEq/L (98-107)
[2019-08-22 07:43] LABS: CREATINE KINASE 248 IU/L (39-308)
[2019-08-22] MEDS: BUDESONIDE 0.5MG/2ML NEB HHN SCH ×2 (07:46→21:00)
[2019-08-22] MEDS: IPRATROPIUM/ALBUTEROL 0.5-3(2.5)MG/3ML NEB HHN SCH ×3 (07:46→21:00)
[2019-08-22 07:47] LABS: CREATINE KINASE MB FRACTION 7.4 ng/mL (0.5-3.6)
[2019-08-22 07:50] LABS: HEPATITIS B SURFACE ANTIGEN NEGATIVE
[2019-08-22 08:00] VITALS: BP 120/66
[2019-08-22 08:20] LABS: HEPATITIS A AB IGM NEGATIVE (NEGATIVE)
[2019-08-22] MEDS: METOPROLOL TARTRATE 25MG TABLET PO SCH ×2 (08:22→21:27)
[2019-08-22] MEDS: CARBIDOPA/LEVODOPA 10/100MG TABLET PO SCH ×3 (08:22→21:25)
[2019-08-22] MEDS: AMLODIPINE 10MG TABLET PO SCH (08:22)
[2019-08-22] MEDS: LEVOTHYROXINE SODIUM 25MCG TABLET PO SCH (08:22)
[2019-08-22] MEDS: FUROSEMIDE 40MG/4ML VIAL IV SCH (08:22)
[2019-08-22] MEDS: COLCHICINE 0.6MG TABLET PO SCH (08:22)
[2019-08-22 10:14] LABS: BG BASE EXCESS -0.7 mmol/L (-2.0-2.0); BG CARBOXYHEMOGLOBIN 0.7 % (0.5-1.5); BG DEOXYHEMOGLOBIN 2.6 % (0.0-5.0); BG FRACTION INSPIRED OXYGEN 28; BG HCO3 ACT 24.9 mmol/L (22.0-26.0); BG METHEMOGLOBIN 0.3 % (0.0-1.5); BG OXYGEN SATURATION 97.4 % (92.0-98.5); BG OXYHEMOGLOBIN 96.4 % (94.0-97.0); BG PCO2 44.8 mmHg (35.0-45.0); BG PH 7.363 (7.350-7.450); BG PO2 110.2 mmHg (75.0-100.0); BG SAMPLE SITE RIGHT BRACHIAL; BG TOTAL HEMOGLOBIN 12.8 g/dL (12.0-18.0); BG VENT MODE NASAL CANNULA
[2019-08-22 12:00] VITALS: BP 107/65
[2019-08-22 16:00] VITALS: BP 95/67
[2019-08-22 16:14] LABS: INR 3.8; PROTHROMBIN TIME 39.5 sec (9.6-11.0)
[2019-08-22] MEDS: METRONIDAZOLE 500 MG PREMIX 100 ML IV SCH (17:50)
[2019-08-22 20:00] VITALS: BP 107/84
[2019-08-22] MEDS: CEFTRIAXONE 1 G PREMIX 50 ML IV SCH (21:25)
[2019-08-23] VITALS: BP 114/68
[2019-08-23] MEDS: METRONIDAZOLE 500 MG PREMIX 100 ML IV SCH ×3 (01:55→16:48)
[2019-08-23] MEDS: IPRATROPIUM/ALBUTEROL 0.5-3(2.5)MG/3ML NEB HHN SCH ×4 (02:14→20:41)
[2019-08-23 04:00] VITALS: BP 98/52
[2019-08-23 06:38] LABS: HEMATOCRIT. 33.9 % (42.0-52.0); HEMOGLOBIN. 11.5 g/dL (14.0-18.0); LYMPHOCYTES % 14.1 % (20.0-50.0); MEAN CORPUSCULAR HEMOGLOBIN 31.5 pg (28.0-32.0); MEAN PLATELET VOLUME 8.7 fl (7.4-10.4); MONOCYTES % 7.3 % (2.0-8.0); NEUTROPHILS % 71.6 % (40.0-76.0); PLATELET 179 x1000/uL (130-400); RED BLOOD CELL COUNT 3.64 mill/uL (4.7-6.1)
[2019-08-23] MEDS: CARBIDOPA/LEVODOPA 10/100MG TABLET PO SCH ×3 (06:50→21:03)
[2019-08-23] MEDS: LEVOTHYROXINE SODIUM 25MCG TABLET PO SCH (06:50)
[2019-08-23 07:00] LABS: CHLORIDE 99 mEq/L (98-107)
[2019-08-23 08:00] VITALS: BP 125/73
[2019-08-23] MEDS: AMLODIPINE 10MG TABLET PO SCH (08:31)
[2019-08-23] MEDS: COLCHICINE 0.6MG TABLET PO SCH (08:31)
[2019-08-23] MEDS: METOPROLOL TARTRATE 25MG TABLET PO SCH ×2 (08:31→21:03)
[2019-08-23] MEDS: FUROSEMIDE 40MG/4ML VIAL IV SCH (08:31)
[2019-08-23] MEDS: BUDESONIDE 0.5MG/2ML NEB HHN SCH ×2 (09:33→20:41)
[2019-08-23 12:00] VITALS: BP 109/62
[2019-08-23 13:10] LABS: HIV SCREEN 4G Non Reactive (Non Reactive)
[2019-08-23 16:00] VITALS: BP 106/63
[2019-08-23 20:00] VITALS: BP 131/76
[2019-08-23] MEDS: CEFTRIAXONE 1 G PREMIX 50 ML IV SCH (21:03)
[2019-08-24] VITALS: BP 111/72
[2019-08-24] MEDS: METRONIDAZOLE 500 MG PREMIX 100 ML IV SCH ×2 (00:05→09:07)
[2019-08-24] MEDS: IPRATROPIUM/ALBUTEROL 0.5-3(2.5)MG/3ML NEB HHN SCH ×3 (02:10→14:19)
[2019-08-24 04:00] VITALS: BP 112/69
[2019-08-24] MEDS: LEVOTHYROXINE SODIUM 25MCG TABLET PO SCH (06:02)
[2019-08-24] MEDS: CARBIDOPA/LEVODOPA 10/100MG TABLET PO SCH ×2 (06:02→13:11)
[2019-08-24 07:13] LABS: BASOPHILS % 0.8 % (0.0-2.0); HEMATOCRIT. 36.5 % (42.0-52.0); HEMOGLOBIN. 12.1 g/dL (14.0-18.0); LYMPHOCYTES % 11.9 % (20.0-50.0); MEAN CORPUSCULAR HEMOGLOBIN 31.2 pg (28.0-32.0); MEAN CORPUSCULAR VOLUME 93.9 fL (80.0-94.0); MEAN PLATELET VOLUME 8.9 fl (7.4-10.4); MONOCYTES % 10.8 % (2.0-8.0); NEUTROPHILS % 70.5 % (40.0-76.0); PLATELET 179 x1000/uL (130-400); RED BLOOD CELL COUNT 3.89 mill/uL (4.7-6.1)
[2019-08-24 07:30] LABS: INR 1.7; PROTHROMBIN TIME 17.7 sec (9.6-11.0)
[2019-08-24 08:00] VITALS: BP 101/65
[2019-08-24 08:05] LABS: CHLORIDE 100 mEq/L (98-107)
[2019-08-24] MEDS: AMLODIPINE 10MG TABLET PO SCH (08:51)
[2019-08-24] MEDS: METOPROLOL TARTRATE 25MG TABLET PO SCH (08:52)
[2019-08-24] MEDS: COLCHICINE 0.6MG TABLET PO SCH (09:07)
[2019-08-24] MEDS: FUROSEMIDE 40MG/4ML VIAL IV SCH (09:07)
[2019-08-24] MEDS: BUDESONIDE 0.5MG/2ML NEB HHN SCH (09:38)
[2019-08-24 10:32] VITALS: BP 101/65
[2019-08-24 12:00] VITALS: BP 120/76
[2019-08-24] MEDS ORDERED: METRONIDAZOLE 500MG TABLET PO SCH (15:00)
[2019-08-25] MEDS ORDERED: AMLODIPINE 5MG TABLET PO SCH (09:00)
== END 2019-08-24 14:55 | disposition home or self-care (01) | DRG 720 ==
LOC: ER 18:43 → EDBEDREQ 22:53 → 7EST 23:50 → EDBEDREQ 23:54 → ENRESERV 08-21 03:59 → 5WST 08-21 21:30
PROVIDERS: ADMIT Hospitalist; ATTEND Hospitalist
DX: A41.9 Sepsis, unspecified organism (principal); J96.00 Acute respiratory failure, unspecified whether with hypoxia or hypercapnia; I50.43 Acute on chronic combined systolic (congestive) and diastolic (congestive) heart failure; J18.9 Pneumonia, unspecified organism; D68.9 Coagulation defect, unspecified; I27.20 Pulmonary hypertension, unspecified; G20 Parkinson's disease; I13.0 Hypertensive heart and chronic kidney disease with heart failure and stage 1 through stage 4 chronic kidney disease, or unspecified chronic kidney disease; I48.20 Chronic atrial fibrillation, unspecified; I42.9 Cardiomyopathy, unspecified; N18.9 Chronic kidney disease, unspecified; E16.2 Hypoglycemia, unspecified; E03.9 Hypothyroidism, unspecified; R74.0 Nonspecific elevation of levels of transaminase and lactic acid dehydrogenase [LDH]; M10.9 Gout, unspecified; I34.0 Nonrheumatic mitral (valve) insufficiency; Z20.828 Contact with and (suspected) exposure to other viral communicable diseases; I73.9 Peripheral vascular disease, unspecified; D72.821 Monocytosis (symptomatic); J44.0 Chronic obstructive pulmonary disease with (acute) lower respiratory infection; E80.6 Other disorders of bilirubin metabolism; Z79.84 Long term (current) use of oral hypoglycemic drugs; Z79.899 Other long term (current) drug therapy; Z79.01 Long term (current) use of anticoagulants; Z87.820 Personal history of traumatic brain injury
CPT/HCPCS: 36415; 36600; 71045; 76700; 80053; 80307; 81003; 82375; 82550; 82553; 82805; 82962; 83605; 83735; 83880; 84484; 85025; 86705; 86709; 86803; 87340; 87389; 87635; 87804; 93005; 97162; 97530; 99291; J0456; J0696; J1940; J2270; J2405; J3490; J7060; J7626

== ENCOUNTER 2019-10-15 11:38 | Inpatient (IN) | payer MEDICAID ==
[~2019-10-15] VITALS: Ht 167.6 cm; Wt 89.8 kg
[~2019-10-15 11:38] MED LIST changes: +ALBU18HF2 IH; -BENA10TA74 PO; -COLC0.6C3 PO; +COR12 PO; -FURO20TA4 PO; +FURO40TA5 PO; +LOSA50TA3 PO; -METO25TA6 PO
[2019-10-15] MEDS ORDERED: ALBUTEROL (0.5%) 2.5MG/0.5ML NEB HHN ONE (12:30)
[2019-10-15 12:33] LABS: BASOPHILS % 0.7 % (0.0-2.0); EOSINOPHILS % 6.8 % (0.0-5.0); HEMATOCRIT. 32.9 % (42.0-52.0); HEMOGLOBIN. 11.3 g/dL (14.0-18.0); LYMPHOCYTES % 12.7 % (20.0-50.0); MEAN CORPUSCULAR HEMOGLOBIN 34.4 pg (28.0-32.0); MEAN CORPUSCULAR VOLUME 99.7 fL (80.0-94.0); MEAN PLATELET VOLUME 8.8 fl (7.4-10.4); NEUTROPHILS % 67.8 % (40.0-76.0); PLATELET 147 x1000/uL (130-400); RED CELL DISTRIBUTION WIDTH 18.2 % (11.6-14.6)
[2019-10-15] MEDS ORDERED: FURO80TA3 MT (12:39)
[2019-10-15 12:40] LABS: CHLORIDE 104 mEq/L (98-107)
[2019-10-15] MEDS ORDERED: SACU1TAB MT (12:40)
[2019-10-15 12:44] LABS: ETHANOL BLOOD < 10 mg/dL
[2019-10-15 13:01] LABS: BG BASE EXCESS 0.8 mmol/L (-2.0-2.0); BG CARBOXYHEMOGLOBIN 0.9 % (0.5-1.5); BG DEOXYHEMOGLOBIN 0.5 % (0.0-5.0); BG FRACTION INSPIRED OXYGEN 28; BG HCO3 ACT 27.5 mmol/L (22.0-26.0); BG METHEMOGLOBIN 0.4 % (0.0-1.5); BG OXYGEN SATURATION 99.5 % (92.0-98.5); BG OXYHEMOGLOBIN 98.2 % (94.0-97.0); BG PCO2 53.5 mmHg (35.0-45.0); BG PH 7.329 (7.350-7.450); BG PO2 241.2 mmHg (75.0-100.0); BG SAMPLE SITE RIGHT RADIAL; BG TOTAL HEMOGLOBIN 11.9 g/dL (12.0-18.0); BG VENT MODE NASAL CANNULA
[2019-10-15 13:36] LABS: METHADONE URINE SCREEN NEGATIVE (NEGATIVE); OPIATES URINE SCREEN NEGATIVE (NEGATIVE)
[2019-10-15 13:37] LABS: *AMPHETAMINES SCREEN URINE NEGATIVE (NEGATIVE); *BARBITURATES SCREEN URINE NEGATIVE (NEGATIVE); *BENZODIAZEPINES SCREEN URINE NEGATIVE (NEGATIVE); *COCAINE SCREEN URINE NEGATIVE (NEGATIVE); CANNABINOID URINE SCREEN NEGATIVE (NEGATIVE); PHENCYCLIDINE URINE SCREEN NEGATIVE (NEGATIVE)
[2019-10-15] MEDS ORDERED: FUROSEMIDE 40MG/4ML VIAL IV ONE (13:45)
[2019-10-15] MEDS ORDERED: NITROGLYCERIN OINT 1GM/INCH UDPKT TD ONE (13:45)
[2019-10-15] MEDS ORDERED: ASPIRIN 81MG TABLET PO ONE (13:45)
[2019-10-15] MEDS ORDERED: FUROSEMIDE 40MG/4ML VIAL IVP ONE (14:00)
[2019-10-15] MEDS: NITROGLYCERIN OINT 1GM/INCH UDPKT TD SCH ×2 (16:00→20:02)
[2019-10-15] MEDS ORDERED: IPRATROPIUM/ALBUTEROL 0.5-3(2.5)MG/3ML NEB HHN PRN (17:00)
[2019-10-15] MEDS: MORPHINE SULFATE 2 MG/ML CPJ (NOT FOR IM USE) IV PRN ×2 (17:43→20:03)
[2019-10-15] MEDS: FUROSEMIDE 40MG/4ML VIAL IVP SCH (17:43)
[2019-10-15] MEDS: RIVAROXABAN 20 MG TABLET PO SCH (18:30)
[2019-10-15] MEDS ORDERED: HYDROCODONE/ACETAMINOPHEN 5/325MG TABLET PO PRN (18:45)
[2019-10-15] MEDS ORDERED: ENOXAPARIN 40MG/0.4ML SYR SUBCUT SCH (18:45)
[2019-10-15] MEDS ORDERED: CLONIDINE 0.1MG TABLET PO PRN (18:45)
[2019-10-15] MEDS ORDERED: FUROSEMIDE 40MG/4ML VIAL IV SCH (18:45)
[2019-10-15] MEDS ORDERED: CEFTRIAXONE 1 G PREMIX 50 ML IV SCH (19:30)
[2019-10-15] MEDS ORDERED: AZITHROMYCIN 500 MG in DEXT 5% WATER 250 ML IV SCH (20:00)
[2019-10-15] MEDS: LORAZEPAM 2MG/ML CPJ IV PRN (20:03)
[2019-10-15] MEDS: ACETAMINOPHEN 325MG TABLET PO PRN (20:04)
[2019-10-15 21:30] VITALS: BP 91/52
[2019-10-15 22:00] VITALS: BP 91/52
[2019-10-15] MEDS ORDERED: COR25 PO (23:17)
[2019-10-15] MEDS ORDERED: COLC0.6C3 PO (23:17)
[2019-10-16] VITALS (47 sets, daily range): BP systolic 61–168; BP diastolic 31–128
[2019-10-16 00:33] LABS: CREATINE KINASE MB FRACTION 3.7 ng/mL (0.5-3.6)
[2019-10-16] MEDS: FUROSEMIDE 40MG/4ML VIAL IVP SCH ×2 (06:18→17:17)
[2019-10-16] MEDS: NITROGLYCERIN OINT 1GM/INCH UDPKT TD SCH ×3 (06:18→21:27)
[2019-10-16 06:31] LABS: BASOPHILS % 0.5 % (0.0-2.0); EOSINOPHILS % 9.1 % (0.0-5.0); HEMATOCRIT. 35.5 % (42.0-52.0); HEMOGLOBIN. 11.5 g/dL (14.0-18.0); LYMPHOCYTES % 11.9 % (20.0-50.0); MEAN CORPUSCULAR HEMOGLOBIN 33.6 pg (28.0-32.0); MEAN CORPUSCULAR VOLUME 103.4 fL (80.0-94.0); MEAN PLATELET VOLUME 8.4 fl (7.4-10.4); MONOCYTES % 12.9 % (2.0-8.0); NEUTROPHILS % 65.6 % (40.0-76.0); PLATELET 141 x1000/uL (130-400); RED BLOOD CELL COUNT 3.43 mill/uL (4.7-6.1); RED CELL DISTRIBUTION WIDTH 18.5 % (11.6-14.6)
[2019-10-16 06:42] LABS: PHOSPHORUS 7.9 mg/dL (2.5-4.9)
[2019-10-16 06:47] LABS: CREATINE KINASE MB FRACTION 4.1 ng/mL (0.5-3.6)
[2019-10-16] MEDS ORDERED: FENTANYL CITRATE/PF 1,000 MCG in SODIUM CHLORIDE 0.9% 80 ML IV PRN (08:30)
[2019-10-16] MEDS: FENTANYL 1,000 MCG in SODIUM CHLORIDE 0.9% 100 ML IV PRN (08:49)
[2019-10-16] MEDS: NOREPINEPHRINE 8 MG in DEXT 5% WATER 242 ML IV PRN ×2 (08:49→22:30)
[2019-10-16 09:27] LABS: CLARITY URINE CLEAR (CLEAR); COLOR URINE YELLOW (YELLOW); KETONES URINE NEGATIVE (NEGATIVE); LEUKOCYTE ESTERASE URINE NEGATIVE (NEGATIVE); NITRITE URINE NEGATIVE (NEGATIVE); OCCULT BLOOD URINE TRACE (NEGATIVE); PROTEIN URINE 1+ (NEGATIVE); UROBILINOGEN URINE 0.2 E.U./dL (0.2-1.0)
[2019-10-16 10:04] LABS: T4 FREE 1.19 ng/dL (0.76-1.46)
[2019-10-16] MEDS: PROPOFOL 10MG/ML 100ML 100 ML IV PRN ×3 (10:13→21:20)
[2019-10-16 10:15] LABS: BG CARBOXYHEMOGLOBIN 1.1 % (0.5-1.5); BG DEOXYHEMOGLOBIN 0.3 % (0.0-5.0); BG FRACTION INSPIRED OXYGEN 100; BG HCO3 ACT 26.6 mmol/L (22.0-26.0); BG METHEMOGLOBIN 0.3 % (0.0-1.5); BG OXYGEN SATURATION 99.7 % (92.0-98.5); BG OXYHEMOGLOBIN 98.3 % (94.0-97.0); BG PCO2 64.6 mmHg (35.0-45.0); BG PH 7.232 (7.350-7.450); BG PO2 576.1 mmHg (75.0-100.0); BG SAMPLE SITE RIGHT RADIAL; BG TIDAL VOLUME(mL) 500 mL; BG TOTAL HEMOGLOBIN 11.9 g/dL (12.0-18.0); BG VENT MODE VENT - A/C; BG VENT RATE 16 set
[2019-10-16] MEDS: ASPIRIN 81MG EC TABLET PO SCH (11:17)
[2019-10-16] MEDS: POTASSIUM CHLORIDE 20MEQ TABLET SR PO SCH (11:17)
[2019-10-16] MEDS: AZITHROMYCIN 500 MG in DEXT 5% WATER 250 ML IV SCH (11:17)
[2019-10-16] MEDS: RIVAROXABAN 20 MG TABLET PO SCH (17:17)
[2019-10-16] MEDS: CEFTRIAXONE 1 G PREMIX 50 ML IV SCH (20:02)
[2019-10-16] MEDS: IPRATROPIUM/ALBUTEROL 0.5-3(2.5)MG/3ML NEB HHN SCH (20:26)
[2019-10-17] VITALS (73 sets, daily range): BP systolic 58–157; BP diastolic 36–112
[2019-10-17] MEDS: PROPOFOL 10MG/ML 100ML 100 ML IV PRN (03:25)
[2019-10-17] MEDS: IPRATROPIUM/ALBUTEROL 0.5-3(2.5)MG/3ML NEB HHN SCH ×4 (04:46→19:58)
[2019-10-17] MEDS: NITROGLYCERIN OINT 1GM/INCH UDPKT TD SCH ×3 (05:36→22:00)
[2019-10-17] MEDS: FENTANYL 1,000 MCG in SODIUM CHLORIDE 0.9% 100 ML IV PRN (05:50)
[2019-10-17] MEDS: FUROSEMIDE 40MG/4ML VIAL IVP SCH ×2 (05:57→17:15)
[2019-10-17 07:00] LABS: BASOPHILS % 0.6 % (0.0-2.0); EOSINOPHILS % 8.2 % (0.0-5.0); HEMATOCRIT. 37.1 % (42.0-52.0); HEMOGLOBIN. 12.4 g/dL (14.0-18.0); LYMPHOCYTES % 11.6 % (20.0-50.0); MEAN CORPUSCULAR HEMOGLOBIN 33.4 pg (28.0-32.0); MEAN PLATELET VOLUME 8.8 fl (7.4-10.4); MONOCYTES % 14.4 % (2.0-8.0); NEUTROPHILS % 65.2 % (40.0-76.0); PLATELET 133 x1000/uL (130-400); RED BLOOD CELL COUNT 3.71 mill/uL (4.7-6.1); RED CELL DISTRIBUTION WIDTH 17.9 % (11.6-14.6)
[2019-10-17 07:41] LABS: BG BASE EXCESS 0.9 mmol/L (-2.0-2.0); BG CARBOXYHEMOGLOBIN 0.3 % (0.5-1.5); BG DEOXYHEMOGLOBIN 0.7 % (0.0-5.0); BG HCO3 ACT 23.9 mmol/L (22.0-26.0); BG METHEMOGLOBIN 0.3 % (0.0-1.5); BG OXYGEN SATURATION 99.3 % (92.0-98.5); BG OXYHEMOGLOBIN 98.7 % (94.0-97.0); BG PH 7.478 (7.350-7.450); BG PO2 212.5 mmHg (75.0-100.0); BG SAMPLE SITE RIGHT RADIAL; BG TIDAL VOLUME(mL) 500 mL; BG TOTAL HEMOGLOBIN 11.8 g/dL (12.0-18.0); BG VENT MODE VENT - A/C; BG VENT RATE 20 set
[2019-10-17] MEDS: ASPIRIN 81MG EC TABLET PO SCH (08:48)
[2019-10-17] MEDS: POTASSIUM CHLORIDE 20MEQ TABLET SR PO SCH (08:49)
[2019-10-17] MEDS ORDERED: PANTOPRAZOLE SODIUM 40 MG/VIAL IV SCH (09:00)
[2019-10-17] MEDS: AZITHROMYCIN 500 MG in DEXT 5% WATER 250 ML IV SCH (09:20)
[2019-10-17] MEDS: IPRATROPIUM/ALBUTEROL 0.5-3(2.5)MG/3ML NEB HHN PRN (13:37)
[2019-10-17] MEDS: RIVAROXABAN 20 MG TABLET PO SCH (17:50)
[2019-10-17] MEDS: LORAZEPAM 2MG/ML CPJ IV PRN (21:31)
[2019-10-17] MEDS: CEFTRIAXONE 1 G PREMIX 50 ML IV SCH (21:39)
[2019-10-18] VITALS (146 sets, daily range): BP systolic 55–200; BP diastolic 26–138
[2019-10-18] MEDS ORDERED: MIDAZOLAM HCL 100 MG in DEXT 5% WATER 80 ML IV PRN (00:15)
[2019-10-18] MEDS: IPRATROPIUM/ALBUTEROL 0.5-3(2.5)MG/3ML NEB HHN SCH ×5 (01:54→20:30)
[2019-10-18] MEDS: FENTANYL 1,000 MCG in SODIUM CHLORIDE 0.9% 100 ML IV PRN (03:57)
[2019-10-18] MEDS: NITROGLYCERIN OINT 1GM/INCH UDPKT TD SCH (05:16)
[2019-10-18 06:26] LABS: BASOPHILS % 0.4 % (0.0-2.0); EOSINOPHILS % 7.1 % (0.0-5.0); HEMATOCRIT. 36.1 % (42.0-52.0); HEMOGLOBIN. 12.2 g/dL (14.0-18.0); LYMPHOCYTES % 7.2 % (20.0-50.0); MEAN CORPUSCULAR HEMOGLOBIN 33.7 pg (28.0-32.0); MEAN CORPUSCULAR VOLUME 99.7 fL (80.0-94.0); MONOCYTES % 12.9 % (2.0-8.0); NEUTROPHILS % 72.4 % (40.0-76.0); PLATELET 144 x1000/uL (130-400); RED BLOOD CELL COUNT 3.63 mill/uL (4.7-6.1); RED CELL DISTRIBUTION WIDTH 17.7 % (11.6-14.6)
[2019-10-18] MEDS ORDERED: DILTIAZEM HCL 125 MG in DEXT 5% WATER 100 ML IV PRN (07:00)
[2019-10-18] MEDS: FUROSEMIDE 40MG/4ML VIAL IVP SCH (07:15)
[2019-10-18] MEDS ORDERED: CALCIUM CHLORIDE 1GM/10ML SYR IV ONE (07:30)
[2019-10-18] MEDS ORDERED: EPINEPHRINE 0.1MG/ML (1:10,000) 10ML SYR ONE (07:30)
[2019-10-18] MEDS ORDERED: SODIUM BICARBONATE 8.4% MEQ/ML 50ML VIAL IV ONE (07:30)
[2019-10-18] MEDS: PHENYLEPHRINE 40 MG in DEXT 5% WATER 246 ML IV PRN ×4 (08:00→22:03)
[2019-10-18] MEDS: EPINEPHRINE 1 MG in SODIUM CHLORIDE 0.9% 249 ML IV PRN ×2 (08:00→18:26)
[2019-10-18] MEDS: POTASSIUM CHLORIDE 20MEQ TABLET SR PO SCH (08:52)
[2019-10-18] MEDS: FAMOTIDINE 20MG TABLET PO SCH (08:52)
[2019-10-18] MEDS: ASPIRIN 81MG EC TABLET PO SCH (08:52)
[2019-10-18 08:53] LABS: BG DEOXYHEMOGLOBIN 0.1 % (0.0-5.0); BG FRACTION INSPIRED OXYGEN 100; BG METHEMOGLOBIN 0.6 % (0.0-1.5); BG OXYGEN SATURATION 99.9 % (92.0-98.5); BG OXYHEMOGLOBIN 98.3 % (94.0-97.0); BG PCO2 50.2 mmHg (35.0-45.0); BG PH 7.279 (7.350-7.450); BG PO2 546.6 mmHg (75.0-100.0); BG SAMPLE SITE RIGHT BRACHIAL; BG TIDAL VOLUME(mL) 500 mL; BG TOTAL HEMOGLOBIN 12.4 g/dL (12.0-18.0); BG VENT MODE VENT - A/C; BG VENT RATE 16 set
[2019-10-18] MEDS: AZITHROMYCIN 500 MG in DEXT 5% WATER 250 ML IV SCH (10:44)
[2019-10-18] MEDS: ENOXAPARIN 80MG/0.8ML SYR SUBCUT SCH (12:55)
[2019-10-18 16:47] LABS: BG BASE EXCESS -0.9 mmol/L (-2.0-2.0); BG CARBOXYHEMOGLOBIN 1.3 % (0.5-1.5); BG DEOXYHEMOGLOBIN 0.4 % (0.0-5.0); BG HCO3 ACT 24.2 mmol/L (22.0-26.0); BG METHEMOGLOBIN 0.2 % (0.0-1.5); BG OXYHEMOGLOBIN 98.1 % (94.0-97.0); BG PCO2 41.5 mmHg (35.0-45.0); BG PH 7.383 (7.350-7.450); BG PO2 194.3 mmHg (75.0-100.0); BG SAMPLE SITE RIGHT RADIAL; BG TIDAL VOLUME(mL) 500 mL; BG TOTAL HEMOGLOBIN 11.7 g/dL (12.0-18.0); BG VENT MODE VENT - A/C; BG VENT RATE 22 set
[2019-10-18 18:52] LABS: INR 1.7; PROTHROMBIN TIME 18.6 sec (9.6-11.0)
[2019-10-18] MEDS: CEFTRIAXONE 1 G PREMIX 50 ML IV SCH (20:22)
[2019-10-18] MEDS: IPRATROPIUM/ALBUTEROL 0.5-3(2.5)MG/3ML NEB HHN PRN (22:03)
[2019-10-18] MEDS: MORPHINE SULFATE 2 MG/ML CPJ (NOT FOR IM USE) IV PRN (22:17)
[2019-10-19] VITALS (53 sets, daily range): BP systolic 71–159; BP diastolic 42–96
[2019-10-19] MEDS: IPRATROPIUM/ALBUTEROL 0.5-3(2.5)MG/3ML NEB HHN PRN ×2 (00:08→04:05)
[2019-10-19] MEDS: IPRATROPIUM/ALBUTEROL 0.5-3(2.5)MG/3ML NEB HHN SCH ×4 (02:06→20:16)
[2019-10-19] MEDS: MORPHINE SULFATE 2 MG/ML CPJ (NOT FOR IM USE) IV PRN ×2 (02:31→20:09)
[2019-10-19] MEDS: EPINEPHRINE 1 MG in SODIUM CHLORIDE 0.9% 249 ML IV PRN (04:19)
[2019-10-19 05:40] LABS: BASOPHILS % 0.5 % (0.0-2.0); EOSINOPHILS % 5.7 % (0.0-5.0); HEMATOCRIT. 34.5 % (42.0-52.0); HEMOGLOBIN. 11.6 g/dL (14.0-18.0); LYMPHOCYTES % 8.6 % (20.0-50.0); MEAN CORPUSCULAR HEMOGLOBIN 33.2 pg (28.0-32.0); MEAN PLATELET VOLUME 9.2 fl (7.4-10.4); MONOCYTES % 13.3 % (2.0-8.0); NEUTROPHILS % 71.9 % (40.0-76.0); PLATELET 174 x1000/uL (130-400); RED BLOOD CELL COUNT 3.49 mill/uL (4.7-6.1); RED CELL DISTRIBUTION WIDTH 17.3 % (11.6-14.6)
[2019-10-19] MEDS: PHENYLEPHRINE 80 MG in DEXT 5% WATER 492 ML IV PRN ×2 (07:50→18:00)
[2019-10-19] MEDS: NOREPINEPHRINE 8 MG in DEXT 5% WATER 242 ML IV PRN (07:51)
[2019-10-19] MEDS: POTASSIUM CHLORIDE 20MEQ TABLET SR PO SCH (09:00)
[2019-10-19] MEDS: ASPIRIN 81MG EC TABLET PO SCH (09:04)
[2019-10-19] MEDS: FAMOTIDINE 20MG TABLET PO SCH (09:04)
[2019-10-19] MEDS: AZITHROMYCIN 500 MG in DEXT 5% WATER 250 ML IV SCH (09:05)
[2019-10-19] MEDS: ENOXAPARIN 80MG/0.8ML SYR SUBCUT SCH (09:05)
[2019-10-19 09:10] LABS: BG BASE EXCESS -0.4 mmol/L (-2.0-2.0); BG CARBOXYHEMOGLOBIN 0.2 % (0.5-1.5); BG DEOXYHEMOGLOBIN 2.7 % (0.0-5.0); BG FRACTION INSPIRED OXYGEN 40; BG HCO3 ACT 24.8 mmol/L (22.0-26.0); BG METHEMOGLOBIN 0.3 % (0.0-1.5); BG OXYGEN SATURATION 97.3 % (92.0-98.5); BG OXYHEMOGLOBIN 96.8 % (94.0-97.0); BG PCO2 42.7 mmHg (35.0-45.0); BG PH 7.382 (7.350-7.450); BG PO2 98.7 mmHg (75.0-100.0); BG SAMPLE SITE RIGHT BRACHIAL; BG TIDAL VOLUME(mL) 500 mL; BG TOTAL HEMOGLOBIN 11.6 g/dL (12.0-18.0); BG VENT MODE VENT - A/C; BG VENT RATE 22 set
[2019-10-19] MEDS ORDERED: LORAZEPAM 2MG/ML CPJ IV NR (11:59)
[2019-10-19] MEDS ORDERED: SODIUM CHLORIDE 0.9% 1,000 ML IV SCH (14:00)
[2019-10-19] MEDS ORDERED: MIDODRINE HCL 5MG TABLET NG SCH (17:00)
[2019-10-19] MEDS: LORAZEPAM 2MG/ML CPJ IV PRN (20:01)
[2019-10-19] MEDS: CEFTRIAXONE 1 G PREMIX 50 ML IV SCH (20:02)
[2019-10-19] MEDS: DEXT 5%/0.45% NACL 1000ML 1,000 ML IV SCH (20:03)
[2019-10-20] VITALS (55 sets, daily range): BP systolic 66–149; BP diastolic 39–97
[2019-10-20] MEDS: IPRATROPIUM/ALBUTEROL 0.5-3(2.5)MG/3ML NEB HHN SCH ×4 (01:00→20:12)
[2019-10-20] MEDS: DEXT 5%/0.45% NACL 1000ML 1,000 ML IV SCH (03:25)
[2019-10-20] MEDS: PHENYLEPHRINE 80 MG in DEXT 5% WATER 492 ML IV PRN ×2 (03:55→14:12)
[2019-10-20] MEDS: ACETAMINOPHEN 325MG TABLET PO PRN ×2 (04:11→09:00)
[2019-10-20] MEDS: LORAZEPAM 2MG/ML CPJ IV PRN ×2 (06:54→19:35)
[2019-10-20 06:57] LABS: BASOPHILS % 0.5 % (0.0-2.0); EOSINOPHILS % 10.8 % (0.0-5.0); HEMATOCRIT. 32.9 % (42.0-52.0); HEMOGLOBIN. 11.2 g/dL (14.0-18.0); LYMPHOCYTES % 11.7 % (20.0-50.0); MEAN CORPUSCULAR HEMOGLOBIN 33.6 pg (28.0-32.0); MEAN CORPUSCULAR VOLUME 98.8 fL (80.0-94.0); MEAN PLATELET VOLUME 9.2 fl (7.4-10.4); MONOCYTES % 12.9 % (2.0-8.0); NEUTROPHILS % 64.1 % (40.0-76.0); PLATELET 187 x1000/uL (130-400); RED BLOOD CELL COUNT 3.33 mill/uL (4.7-6.1)
[2019-10-20] MEDS: ASPIRIN 81MG EC TABLET PO SCH (09:00)
[2019-10-20] MEDS: MORPHINE SULFATE 2 MG/ML CPJ (NOT FOR IM USE) IV PRN ×2 (09:00→22:34)
[2019-10-20] MEDS: POTASSIUM CHLORIDE 20MEQ TABLET SR PO SCH (09:00)
[2019-10-20] MEDS: FAMOTIDINE 20MG TABLET PO SCH (09:00)
[2019-10-20] MEDS: ENOXAPARIN 80MG/0.8ML SYR SUBCUT SCH (09:00)
[2019-10-20] MEDS: AZITHROMYCIN 500 MG in DEXT 5% WATER 250 ML IV SCH (10:00)
[2019-10-20] MEDS: SODIUM CHLORIDE 0.9% 1,000 ML IV SCH (10:00)
[2019-10-20] MEDS: NOREPINEPHRINE 8 MG in DEXT 5% WATER 242 ML IV PRN (11:11)
[2019-10-20] MEDS: MIDODRINE HCL 2.5MG TABLET NG SCH ×2 (14:13→17:33)
[2019-10-20] MEDS: CEFEPIME 2,000 MG in DEXT 5% WATER 100 ML IV SCH (14:13)
[2019-10-21] VITALS (48 sets, daily range): BP systolic 86–150; BP diastolic 42–88
[2019-10-21] MEDS: LORAZEPAM 2MG/ML CPJ IV PRN ×2 (00:34→20:00)
[2019-10-21] MEDS: IPRATROPIUM/ALBUTEROL 0.5-3(2.5)MG/3ML NEB HHN SCH ×5 (02:14→21:05)
[2019-10-21] MEDS: NOREPINEPHRINE 8 MG in DEXT 5% WATER 242 ML IV PRN (04:12)
[2019-10-21] MEDS: PHENYLEPHRINE 80 MG in DEXT 5% WATER 492 ML IV PRN ×2 (04:13→08:30)
[2019-10-21] MEDS: MORPHINE SULFATE 2 MG/ML CPJ (NOT FOR IM USE) IV PRN ×2 (04:16→23:51)
[2019-10-21] MEDS: SODIUM CHLORIDE 0.9% 1,000 ML IV SCH (06:00)
[2019-10-21 07:08] LABS: BASOPHILS % 0.5 % (0.0-2.0); EOSINOPHILS % 11.4 % (0.0-5.0); HEMATOCRIT. 34.1 % (42.0-52.0); HEMOGLOBIN. 11.6 g/dL (14.0-18.0); MEAN CORPUSCULAR HEMOGLOBIN 33.4 pg (28.0-32.0); MEAN CORPUSCULAR VOLUME 97.8 fL (80.0-94.0); MEAN PLATELET VOLUME 8.6 fl (7.4-10.4); MONOCYTES % 14.1 % (2.0-8.0); PLATELET 194 x1000/uL (130-400); RED BLOOD CELL COUNT 3.49 mill/uL (4.7-6.1); RED CELL DISTRIBUTION WIDTH 16.8 % (11.6-14.6)
[2019-10-21] MEDS: ASPIRIN 81MG EC TABLET PO SCH (08:28)
[2019-10-21] MEDS: MIDODRINE HCL 2.5MG TABLET NG SCH ×3 (08:28→17:00)
[2019-10-21] MEDS: FAMOTIDINE 20MG TABLET PO SCH (08:29)
[2019-10-21] MEDS: ENOXAPARIN 80MG/0.8ML SYR SUBCUT SCH (08:29)
[2019-10-21] MEDS: POTASSIUM CHLORIDE 20MEQ TABLET SR PO SCH (08:29)
[2019-10-21] MEDS ORDERED: ALBUMIN HUMAN 12.5G/250ML (5%) IV SCH (12:30)
[2019-10-21] MEDS: CEFEPIME 2,000 MG in DEXT 5% WATER 100 ML IV SCH (14:00)
[2019-10-21] MEDS ORDERED: ALBUMIN HUMAN 25GM/500ML (5%) IV SCH (15:00)
[2019-10-22] VITALS (60 sets, daily range): BP systolic 91–133; BP diastolic 41–70
[2019-10-22] MEDS: IPRATROPIUM/ALBUTEROL 0.5-3(2.5)MG/3ML NEB HHN SCH ×2 (02:15→08:36)
[2019-10-22] MEDS: PHENYLEPHRINE 80 MG in DEXT 5% WATER 492 ML IV PRN (02:23)
[2019-10-22] MEDS: LORAZEPAM 2MG/ML CPJ IV PRN ×2 (02:24→13:36)
[2019-10-22] MEDS: MIDODRINE HCL 2.5MG TABLET NG SCH ×2 (08:50→13:37)
[2019-10-22] MEDS: ASPIRIN 81MG EC TABLET PO SCH (08:50)
[2019-10-22] MEDS: POTASSIUM CHLORIDE 20MEQ TABLET SR PO SCH (08:50)
[2019-10-22] MEDS: ENOXAPARIN 80MG/0.8ML SYR SUBCUT SCH (08:51)
[2019-10-22] MEDS: FAMOTIDINE 20MG TABLET PO SCH (08:53)
[2019-10-22 09:26] LABS: HEMOGLOBIN. 10.5 g/dL (14.0-18.0); MEAN CORPUSCULAR VOLUME 97.7 fL (80.0-94.0); MEAN PLATELET VOLUME 8.4 fl (7.4-10.4); PLATELET 145 x1000/uL (130-400); RED BLOOD CELL COUNT 3.17 mill/uL (4.7-6.1); RED CELL DISTRIBUTION WIDTH 16.3 % (11.6-14.6)
[2019-10-22] MEDS ORDERED: WATER IV PRN (10:15)
[2019-10-22] MEDS ORDERED: PHENYLEPHRINE IV PRN (10:15)
[2019-10-22] MEDS ORDERED: DEXT 5% IV PRN (10:15)
[2019-10-22 10:24] LABS: PLATELET ESTIMATE NORMAL
[2019-10-22] MEDS ORDERED: PHENYLEPHRINE 80 MG in DEXT 5% WATER 492 ML IV PRN (10:45)
[2019-10-22] MEDS: CEFEPIME 2,000 MG in DEXT 5% WATER 100 ML IV SCH (13:37)
[2019-10-22] MEDS ORDERED: LORAZEPAM 2MG/ML CPJ IV PRN (14:15)
[2019-10-22] MEDS ORDERED: MORPHINE SULFATE 250 MG in DEXT 5% WATER 225 ML IV PRN (14:15)
[2019-10-22] MEDS: NOREPINEPHRINE 8 MG in DEXT 5% WATER 242 ML IV PRN (14:15)
== END 2019-10-22 23:45 | disposition expired | DRG 720 ==
LOC: ER 11:38 → 7WST 13:52 → ENRESERV 14:55 → CANRESERV 14:55 → EDBEDREQ 19:34 → ENRESERV 20:04 → 5EST 10-16 08:26
PROVIDERS: ADMIT Internal Medicine Nephrology; ATTEND Internal Medicine Nephrology
PROC: 5A1955Z Respiratory Ventilation, Greater than 96 Consecutive Hours (ICD-10-PCS; principal; 2019-10-16)
PROC: 0BH17EZ Insertion of Endotracheal Airway into Trachea, Via Natural or Artificial Opening (ICD-10-PCS; 2019-10-16)
PROC: 05H333Z Insertion of Infusion Device into Right Innominate Vein, Percutaneous Approach (ICD-10-PCS; 2019-10-16)
PROC: B54MZZA Ultrasonography of Right Upper Extremity Veins, Guidance (ICD-10-PCS; 2019-10-16)
PROC: 5A12012 Performance of Cardiac Output, Single, Manual (ICD-10-PCS; 2019-10-18)
DX: A41.9 Sepsis, unspecified organism (principal); J96.01 Acute respiratory failure with hypoxia; R65.21 Severe sepsis with septic shock; J69.0 Pneumonitis due to inhalation of food and vomit; G92 Toxic encephalopathy; I50.23 Acute on chronic systolic (congestive) heart failure; E46 Unspecified protein-calorie malnutrition; G93.1 Anoxic brain damage, not elsewhere classified; D68.59 Other primary thrombophilia; I27.21 Secondary pulmonary arterial hypertension; N17.9 Acute kidney failure, unspecified; G20 Parkinson's disease; I13.0 Hypertensive heart and chronic kidney disease with heart failure and stage 1 through stage 4 chronic kidney disease, or unspecified chronic kidney disease; E03.9 Hypothyroidism, unspecified; E78.5 Hyperlipidemia, unspecified; I34.0 Nonrheumatic mitral (valve) insufficiency; I42.0 Dilated cardiomyopathy; I48.19 Other persistent atrial fibrillation; N18.9 Chronic kidney disease, unspecified; I50.82 Biventricular heart failure; E80.6 Other disorders of bilirubin metabolism; J44.9 Chronic obstructive pulmonary disease, unspecified; Z20.828 Contact with and (suspected) exposure to other viral communicable diseases; M10.9 Gout, unspecified; Z66 Do not resuscitate; Z88.2 Allergy status to sulfonamides; Z79.01 Long term (current) use of anticoagulants; Z87.820 Personal history of traumatic brain injury; Z87.01 Personal history of pneumonia (recurrent); Z91.14 Patient's other noncompliance with medication regimen; Z68.32 Body mass index [BMI] 32.0-32.9, adult
CPT/HCPCS: 36415; 36600; 71045; 76937; 78580; 80048; 80053; 80076; 80305; 80320; 81003; 82375; 82550; 82553; 82805; 82962; 83605; 83735; 83880; 84100; 84145; 84439; 84443; 84478; 84481; 84484; 85025; 85379; 87070; 87804; 93005; 93306; 93970; 94002; 94003; 94640; 99291; C1725; C9113; J0456; J0692; J0696; J1650; J1940; J2060; J2270; J2370; J2704; J3010; J3490; J7030; J7050; J7060; P9041; G0480; U0003-CS